=== PATIENT | female | born 1995 | race African-American/Black ===

== ENCOUNTER 2024-10-29 15:03 | Emergency (ER) | payer OTHER ==
--- NOTE | 2024-10-29 16:20 | ER ---
Nurse's Notes [facility] Name: Nereida Sesay Age: 29 yrs Sex: Female : 1995 Arrival Date: 10/29/2024 Time: 15:03 Bed DX2 Private MD: Diagnosis: Acute tonsillitis, unspecified Presentation: 10/29 15:37 Chief complaint: Patient states: nausea x 1 week, HEBERT and sore throat with white pus me1 pockets on back of throat for 2 days. Pain level 6/10. Coronavirus screen: Vaccine status: Patient reports being unvaccinated. Ebola Screen: No symptoms or risks identified at this time. Initial Sepsis Screen: Does the patient meet any 2 criteria? No. Patient's initial sepsis screen is negative. Does the patient have a suspected source of infection? No. Patient's initial sepsis screen is negative. Risk Assessment: Do you want to hurt yourself or someone else? Patient reports no desire to harm self or others. Onset of symptoms was October 27, 2024. 15:37 Method Of Arrival: Ambulatory [facility] 15:37 Acuity: DIAMANTE 4 me1 Triage Assessment: 15:43 General: Appears ill, well groomed, well developed, well nourished, Behavior is calm, me1 cooperative, appropriate for age. Pain: Complains of pain in soft palate, left buccal mucosa and right buccal mucosa Pain does not radiate. Pain currently is 6 out of 10 on a pain scale. Quality of pain is described as burning, tender, Pain began 2-3 days ago. Is continuous. EENT: Reports pain when swallowing. Neuro: Level of Consciousness is awake, alert, obeys commands, Oriented to person, place, time, situation, Appropriate for age. Cardiovascular: Patient's skin is warm and dry. Respiratory: Airway is patent Respiratory effort is even, unlabored, Respiratory pattern is regular, symmetrical. GI: Reports nausea. : No signs and/or symptoms were reported regarding the genitourinary system. Derm: Skin is intact, is healthy with good turgor, Skin is pink, warm \T\ dry. Musculoskeletal: No signs and/or symptoms reported regarding the musculoskeletal system. 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 - Infectious Disease History:: Denies. - Social history:: Smoking status: Patient denies any tobacco usage or history of. Vital Signs: 15:37 BP 137 / 103; Pulse 63; Resp 17; Temp 98.9; Pulse Ox 100% ; Weight 81.65 kg; Height 5 me1 ft. 6 in. ; Pain 6/10; 15:37 Body Mass Index 29.05 (81.65 kg, 167.64 cm) me1 15:37 Pain Scale: Adult mi1 ED Course: 15:04 Patient arrived in ED. ts1 15:13 López Cleary [facility]C [facility] 15:13 Kamar Dale MD is Attending Physician. dr5 15:40 Triage completed. me1 15:40 Arm band placed on Patient placed in waiting room. me1 16:56 Maricruz Lima RN is Primary Nurse. iw Administered Medications: No medications were administered Outcome: 16:19 Discharge ordered by . dr5 16:56 Discharged to home ambulatory, with family, iw 16:56 Condition: good 16:56 Discharge instructions given to patient, family, Instructed on discharge instructions, follow up and referral plans. medication usage, Demonstrated understanding of instructions, follow-up care, medications, Prescriptions given X 1, 16:56 Patient left the ED. iw Signatures: Maricruz Lima RN RN iw Blanka Boone PAS PAS ts1 Teodora Rodriguez RN RN [facility] López Cleary FNP-C FNP-Cdr5
--- NOTE | 2024-10-29 16:20 | EDPHYS ---
Physician Documentation [facility] Name: Nereida Sesay Age: 29 yrs Sex: Female : 1995 Arrival Date: 10/29/2024 Time: 15:03 Bed DX2 Private MD: ED Physician Kamar Dale HPI: 10/29 18:15 This 29 yrs old Black Female presents to ER via Ambulatory with complaints of Sore dr5 Throat. 18:15 Patient is a 29-year-old female with sore throat for the past week. Patient reports dr5 objective fevers at home with headaches. Patient denies any sick contacts.. 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 - Infectious Disease History:: Denies. - Social history:: Smoking status: Patient denies any tobacco usage or history of. ROS: 18:15 Constitutional: as per hpi dr5 Exam: 18:15 Constitutional: This is a well developed, well nourished patient who is awake, alert, dr5 and in no acute distress. Head/Face: Normocephalic, atraumatic. Eyes: Pupils equal round and reactive to light, extra-ocular motions intact. Lids and lashes normal. Conjunctiva and sclera are non-icteric and not injected. Cornea within normal limits. Periorbital areas with no swelling, redness, or edema. Neck: Trachea midline, no thyromegaly or masses palpated, and no cervical lymphadenopathy. Supple, full range of motion without nuchal rigidity, or vertebral point tenderness. No Meningismus. Chest/axilla: Normal chest wall appearance and motion. Nontender with no deformity. No lesions are appreciated. Cardiovascular: Regular rate and rhythm with a normal S1 and S2. Normal PMI, no JVD. No pulse deficits. Respiratory: Lungs have equal breath sounds bilaterally, clear to auscultation. No rales, rhonchi or wheezes noted. No increased work of breathing, no retractions or nasal flaring. Back: No spinal tenderness. No costovertebral tenderness. Full range of motion. Skin: Warm, dry with normal turgor. Normal color with no rashes, no lesions, and no evidence of cellulitis. MS/ Extremity: Pulses equal, no cyanosis. Neurovascular intact. Full, normal range of motion. Neuro: Awake and alert, GCS 15, oriented to person, place, time, and situation. Cranial nerves II-XII grossly intact. Motor strength 5/5 in all extremities. Sensory grossly intact. Cerebellar exam normal. Normal gait. 18:15 ENT: Posterior pharynx: Airway: normal, Tonsils: bilaterally enlarged, with exudate, Uvula: normal, Vital Signs: 15:37 BP 137 / 103; Pulse 63; Resp 17; Temp 98.9; Pulse Ox 100% ; Weight 81.65 kg; Height 5 me1 ft. 6 in. ; Pain 6/10; 15:37 Body Mass Index 29.05 (81.65 kg, 167.64 cm) me1 15:37 Pain Scale: Adult me1 MDM: 15:13 Medical Screening Exam initiated dr5 18:15 Differential diagnosis: group A strep tonsillitis, laryngitis, mononucleosis. Data dr5 reviewed: vital signs, nurses notes, lab test result(s). Care significantly affected by the following Social Determinants of Health: Poor access to healthcare and/or lack of insurance, Poor access to transportation, Problems related to employment. Counseling: I had a detailed discussion with the patient and/or guardian regarding the historical points, exam findings, and any diagnostic results supporting the discharge/admit diagnosis, the presence of at least one elevated blood pressure reading (>120/80) during this emergency department visit, lab results, the need for outpatient follow up, for definitive care, an ENT specialist, a family practitioner, to return to the emergency department if symptoms worsen or persist or if there are any questions or concerns that arise at home. ED course: Will cover for tonsillitis with antibiotics. Take twice a day for the next 10 days. Recommended patient follow-up with primary care doctor. Throw away toothbrush. Recommended alternating Tylenol Motrin as needed for fever and pain. Strict ER precautions given. All questions answered.. 10/29 15:42 Order name: Group A Streptococcus Rapid; Complete Time: 16:19 dr5 10/29 16:11 Order name: Throat Culture EDMS Administered Medications: No medications were administered Disposition Summary: 10/29/24 16:19 Discharge Ordered Notes: Location: Home dr5 Condition: Stable dr5 Diagnosis - Acute tonsillitis, unspecified dr5 Followup: dr5 - With: Emergency Department - When: As needed - Reason: Worsening of condition Followup: dr5 - With: Private Physician - When: 1 - 2 days - Reason: Recheck today's complaints, Continuance of care, Re-evaluation by your physician Discharge Instructions: - Discharge Summary Sheet dr5 - Tonsillitis dr5 Forms: - Medication Reconciliation Form dr5 - Antibiotic Education dr5 - Patient Portal Instructions dr5 - Leadership Thank You Letter dr5 Prescriptions: - penicillin V potassium 500 mg Oral tablet - take 1 tablet ORAL route 2 times per day for 10 days; 20 tablet; Refills: 0, dr5 Product Selection Permitted Addendum: 10/31/2024 12:33 Co-signature as Attending Physician, Kamar Dale MD I agree with the assessment and c arboleda plan of care. Signatures: Dispatcher [employer] Kamar Jamison MD MD cha Eddleman, Michelle, RN RN me1 López Cleary, SAP TREASURY CONSULTANT-C SAP TREASURY CONSULTANT-Cdr5 Corrections: (The following items were deleted from the chart) 10/29 15:43 15:42 Group A Streptococcus Rapid [id number] ordered. [facility]
[2024-10-29 17:05] VITALS: BP 137/103; TEMP 98.9; O2SAT 100
== END 2024-10-29 16:56 | disposition home or self-care (01) ==
LOC: ER 15:03
DX: J03.90 Acute tonsillitis, unspecified (principal)
CPT/HCPCS: 36415; 87070; 99283